=== PATIENT | male | born 1935 | race Caucasian/White ===

== ENCOUNTER 2016-10-07 13:26 | Inpatient (IN) | payer MEDICARE, BC ==
[2016-10-07] MEDS ORDERED: Sodium Chloride 0.9% 10 ML Syringe FLUSH PRN (13:57)
[2016-10-07] MEDS ORDERED: Sodium Chloride 0.9% 1,000 ML IV ONE (14:00)
[2016-10-07 15:17] LABS: CHLORIDE,CL 106 mmol/L (98-107); SODIUM,NA 143 mmol/L (136-145)
[2016-10-07] MEDS: Sodium Chloride 0.9% 1,500 ML IV SCH (17:09)
--- NOTE | 2016-10-07 18:47 | PCM.HP ---
H&P History of Present Illness - General Date of Service: 10/07/16 Admit Problem/Dx: Admission Diagnosis/Problem Admission Diagnosis/Problem Rhabdomyolysis Source of Information: Patient, Family History Limitations: Reports: Other (patient is nonverbal and can only communicate by giving thumb up/thumb down answers) - History of Present Illness Initial Comments - Free Text/Narative: Mr. Norman is an 81 yo male with PMH of mild cognitive impairment, parkinson's disease, hypertension, TIA, giant cell arteritis, polymyalgia rheumatica, hyperlipidemia, adrenal insufficiency, depression, guillan barre, GERD, and osteoporosis who presented to the ED for evaluation after a fall this morning. He was checked on at 7 am. When the family member currently staying with him checked on him again at 9 am, he was on the ground due to a fall. He was trying to get up. The fall was unwitnessed. However, the patient uses a walker for ambulation typically and when they found him, the walker was not near him. It seemed to them he must have been trying to get out of bed and get dressed without using his walker. The patient does not recall the events leading up to the fall or of the fall itself. After they got him back into bed, he was quite sleepy the remainder of the day. This is what ultimately caused the family to bring him in to the ED. He has otherwise not been ill recently that they know of. The ROS is limited by the patient's inability to verbally communicate but is negative for what questions he can answer. He has no pain anywhere. The only other concern by family is his weight loss. They report that he really does not eat much and does not seem interested in eating. Onset of Symptoms: Reports: today Duration of Symptoms: Reports: Hour(s): (6) - Related Data Allergies/Adverse Reactions: Allergies Allergy/AdvReac Type Severity Reaction Status Date / Time Bleach (Sodium Hypochlorite) Allergy Hives Verified 10/07/16 16:10 clindamycin Allergy Other Verified 10/07/16 16:10 hydrocodone Allergy Cannot Verified 10/07/16 13:41 Remember Influenza Virus Vaccines Allergy Other Verified 10/07/16 16:10 levofloxacin [From Levaquin] Allergy Cannot Verified 10/07/16 13:41 Remember lisinopril Allergy Other Verified 10/07/16 16:10 losartan [From Cozaar] Allergy Other Verified 10/07/16 16:10 morphine Allergy Other Verified 10/07/16 16:10 naproxen [From Aleve] Allergy Other Verified 10/07/16 16:10 Penicillins Allergy Cannot Verified 10/07/16 13:41 Remember detergents Allergy Hives Uncoded 10/07/16 16:10 Home Medications: Home Meds Carboxymethylcellulose Sodium [Refresh Tears] 2 drop ASDIRECTED PRN 10/07/16 [ History] Travoprost [Travatan Z 0.004% Ophth Soln] 1 drop DAILY 10/07/16 [History] predniSONE [Prednisone] 3 mg DAILY 10/07/16 [History] Past Medical History HEENT History: Reports: Glaucoma Other HEENT History: Presbyopia Cardiovascular History: Reports: High cholesterol, Hypertension Respiratory History: Reports: None Gastrointestinal History: Reports: Bowel obstruction, GERD Other Gastrointestinal History: weight loss Genitourinary History: Reports: Other (see below) Other Genitourinary History: urinary hesitancy Musculoskeletal History: Reports: Arthritis, Fibromyalgia, Osteoporosis, Other ( see below) Other Musculoskeletal History: polymyalgia rheumatica Neurological History: Reports: Parkinson's, TIA Other Neuro History: Guillain [place] syndrome Psychiatric History: Reports: Depression, Other (see below) (cognitive impairment) Endocrine/Metabolic History: Reports: Other (see below) (adrenal insufficiency) Hematologic History: Reports: None Immunologic History: Reports: None Oncologic (Cancer) History: Reports: None Dermatologic History: Reports: None - Infectious Disease History Infectious Disease History: Reports: None - Past Surgical History HEENT Surgical History: Reports: Oral surgery, Other (see below) Other HEENT Surgeries/Procedures: cyst excision of mandible GI Surgical History: Reports: Other (see below) Other GI Surgeries/Procedures: intestinal resection Musculoskeletal Surgical History: Reports: Joint replacement Other Musculoskeletal Surgeries/Procedures:: hip Social & Family History - Family History Family Medical History: Unobtainable - Tobacco Use Smoking Status *Q: Never Smoker Second Hand Smoke Exposure: No - Caffeine Use Caffeine Use: Reports: Coffee - Alcohol Use Alcohol Use History: No Days Per Week of Alcohol Use: 1 Number of Drinks Per Day: 1 Total Drinks Per Week: 1 - Recreational Drug Use Recreational Drug Use: No - Living Situation & Occupation Living situation: Reports: , alone (Patient lives alone but his family has been consistently staying with him.) H&P Review of Systems - Review of Systems: Review Of Systems: See Below (ROS is limited by patient's inability to speak) General: Reports: no symptoms HEENT: Reports: no symptoms Pulmonary: Reports: no symptoms Cardiovascular: Reports: no symptoms Gastrointestinal: Reports: No symptoms Genitourinary: Reports: no symptoms Musculoskeletal: Reports: no symptoms Skin: Reports: no symptoms Neurological: Reports: no symptoms Hematologic/Lymphatic: Reports: no symptoms Exam - Exam Exam: See Below - Vital Signs Vital Signs: Last Vital Signs Temp 36.9 C 10/07/16 16:48 Pulse 79 10/07/16 16:48 Resp 20 10/07/16 16:48 BP 124/68 10/07/16 16:48 Pulse Ox 98 10/07/16 15:41 Weight: 59.783 kg - Exam General: alert, cooperative HEENT: Conjunctiva clear, EOMI, Hearing intact, Mucosa moist & pink, Pupils equal, Pupils reactive Neck: supple, trachea midline, full range of motion, other (no midline or paraspinous muscle tenderness to palpation in the cervical spine; normal ROM without pain). No: lymphadenopathy, thyromegaly Lungs: Clear to auscultation, Normal respiratory effort Cardiovascular: regular rate, regular rhythm, normal S1, normal S2. No: systolic murmur, diastolic murmur Abdomen: normal bowel sounds, soft. No: organomegaly, peritoneal signs, tenderness Back Exam: normal inspection, full range of motion Extremities: normal inspection, normal pulses. No: edema Skin: warm, dry, intact Neurological: cranial nerves intact, normal gait. No: focal deficit - Patient Data Lab Results last 24 hrs: Laboratory Results - last 24 hr 10/07/16 Range/Units 16:15 Urine Color Dark yellow H (YELLOW) Urine Appearance Slightly cloudy H (CLEAR) Urine pH 5.5 (5.0-8.0) Ur Specific [place] >=1.030 Urine Protein 30 H (NEGATIVE) mg/dL Urine Glucose (UA) Negative (NEGATIVE) mg/dL Urine Ketones 80 H (NEGATIVE) mg/dL Urine Occult Blood Small H (NEGATIVE) Urine Nitrite Negative (NEGATIVE) Urine Bilirubin Small H (NEGATIVE) Urine Urobilinogen 0.2 (0.2) EU/dL Ur Leukocyte Esterase Negative (NEGATIVE) Urine RBC 0-5 (NOT SEEN) /HPF Urine WBC 0-5 (NOT SEEN) /HPF Ur Squamous Epith Cells Few H (NEGATIVE) /HPF Urine Bacteria Not seen (NEGATIVE) /HPF Hyaline Casts Rare H (NEGATIVE) /HPF Urine Mucus Many H (NEGATIVE) /LPF Result Diagrams: 10/07/16 14:25 10/07/16 14:25 *Q Meaningful Use (ADM) - VTE *Q VTE Criteria *Q: - Stroke *Q Stroke Criteria *Q: - AMI *Q AMI Criteria *Q: - Problem List (1) Rhabdomyolysis SNOMED Code(s): 674410977 ICD Code: M62.82 - RHABDOMYOLYSIS Status: Acute Current Visit: Yes Problem Details: - CK of >3,000 is consistent with rhabdomyolysis. He is at low risk for renal injury unless >5,000. - As patient has no history of heart failure, will do IV fluids overnight. Will run at maintenance only. - Recheck CK in am. If downtrending, can d/c IV fluids and see if he can maintain a decrease with oral fluids only. Qualifiers: Rhabdomyolysis type: non-traumatic Qualified Code(s): M62.82 - Rhabdomyolysis (2) Unwitnessed fall SNOMED Code(s): 0846687 ICD Code: R29.6 - REPEATED FALLS Status: Acute Current Visit: Yes Problem Details: - Fall at home was unwitnessed. Sounds likely to be a mechanical fall due to not using his walker. Syncope and seizure are unlikely in the absence of any post-event confusion. - Work-up in the ED for obvious contributors to the fall was negative. - Will have patient on telemetry during his admission to exclude any arrhythmias. - PT/OT evaluation for safety returning home. (3) Unintentional weight loss SNOMED Code(s): 309865317 ICD Code: R63.4 - ABNORMAL WEIGHT LOSS Status: Acute Current Visit: Yes Problem Details: - Concern of family since August. In clinic, weight loss was minimal. However , now, he has lost 10 pounds in the past month. - Labs have been unrevealing for a cause of the weight loss with normal CBC, renal function, hepatic function, TSH, and only mildly elevated CRP. - Will obtain LDH as well as repeat CBC, BMP, CRP, and ESR with am labs. - Patient would also benefit from a CT vs. u/s of the abdomen due to history of renal mass on prior CT scan. - Family is not sure whether the patient would want to treat any malignancy if found anyway so will defer the abdominal imaging to the outpatient setting. - Likely contributors from depression and/or cognitive impairment. The patient is not interested in taking medications; therefore, would not be able to treat depression anyway and he has declined medications for cognitive impairment in the past. (4) Parkinson disease SNOMED Code(s): 74075353 ICD Code: G20 - PARKINSON'S DISEASE Status: Chronic Current Visit: Yes Problem Details: - Likely contributed to his fall. - Not on medications for this as they were not helpful in the past. (5) Mild cognitive impairment SNOMED Code(s): 253701306 ICD Code: G31.84 - MILD COGNITIVE IMPAIRMENT, SO STATED Status: Chronic Current Visit: Yes Problem Details: - Also likely contributed to his fall. - Not on any medications for this either. (6) Hypertension SNOMED Code(s): 64989718 ICD Code: I10 - ESSENTIAL (PRIMARY) HYPERTENSION Status: Chronic Current Visit: Yes Problem Details: - In the past but off medications for quite some time with normal blood pressures. - May have been some orthostasis related to parkinson's disease that contributed to his fall. Qualifiers: Hypertension type: essential hypertension Qualified Code(s): I10 - Essential (primary) hypertension (7) Polymyalgia rheumatica SNOMED Code(s): 57163649 ICD Code: M35.3 - POLYMYALGIA RHEUMATICA Status: Chronic Current Visit: Yes Problem Details: - No current symptoms. (8) Hyperlipidemia SNOMED Code(s): 20398142 ICD Code: E78.5 - HYPERLIPIDEMIA, UNSPECIFIED Status: Chronic Current Visit: Yes Problem Details: - On no medications for this. (9) Adrenal insufficiency SNOMED Code(s): 069369702 ICD Code: E27.40 - UNSPECIFIED ADRENOCORTICAL INSUFFICIENCY Status: Chronic Current Visit: Yes Problem Details: - No evidence adrenal insufficiency contributed to his fall given normal vital signs and labs on admission. - Will stress dose steroids to 9 mg daily while hospitalized. (10) Depression SNOMED Code(s): 16198756 ICD Code: F32.9 - MAJOR DEPRESSIVE DISORDER, SINGLE EPISODE, UNSPECIFIED Status: Chronic Current Visit: Yes Problem Details: - Patient refuses to take medications for this. It may be contributing to appetite and weight loss issues. Qualifiers: Depression Type: major depressive disorder (11) Glaucoma SNOMED Code(s): 28727505 ICD Code: H40.9 - UNSPECIFIED GLAUCOMA Status: Chronic Current Visit: Yes Problem Details: - Continue eye drops. Qualifiers: Glaucoma type: unspecified type Laterality: bilateral Qualified Code(s): H40.9 - Unspecified glaucoma Problem List Initiated/Reviewed/Updated: Yes Orders Last 24hrs: Active Orders 24 hr Category Date Time Status Patient Status [ADT] Routine ADT 10/07/16 16:48 Active Antiembolic Devices [RC] PER UNIT ROUTINE Care 10/07/16 16:50 Active Notify Provider Vital Signs [RC] ASDIRECTED Care 10/07/16 16:48 Active Oxygen Therapy [RC] 08,20 Care 10/07/16 15:52 Active Oxygen Therapy [RC] PRN Care 10/07/16 16:48 Active Up With Assistance [RC] ASDIRECTED Care 10/07/16 16:48 Active VTE/DVT Education [RC] PER UNIT ROUTINE Care 10/07/16 16:48 Active Vital Signs [RC] Q4H Care 10/07/16 16:48 Active Regular Diet [DIET] Diet 10/07/16 Dinner Active BASIC METABOLIC PANEL,BMP [CHEM] Routine Lab 10/08/16 05:11 Ordered C-REACTIVE PROTEIN [CHEM] Routine Lab 10/08/16 05:11 Ordered CBC WITH AUTO DIFF [HEME] Routine Lab 10/08/16 05:11 Ordered LACTATE DEHYDROGENASE,LDH [CHEM] Routine Lab 10/08/16 05:11 Ordered SEDIMENTATION RATE AUTO [HEME] Routine Lab 10/08/16 05:11 Ordered Acetaminophen [Tylenol] Med 10/07/16 16:48 Active 650 mg PO Q4H PRN Patient's Own Medication [Ptom] Med 10/07/16 20:00 Active 0 each EYEBOTH BEDTIME Sodium Chloride 0.9% [Normal Saline] 1,500 ml Med 10/07/16 17:00 Active IV ASDIRECTED predniSONE Med 10/08/16 08:00 Active 9 mg PO DAILY Sequential Compression Device [OM.PC] Per Unit Routine Oth 10/07/16 16:49 Ordered Resuscitation Status Routine Resus Stat 10/07/16 16:48 Ordered Medication Orders Acetaminophen (Tylenol) 650 mg PO Q4H PRN PRN Reason: Pain (Mild 1-3)/fever Sodium Chloride (Normal Saline) 1,500 mls @ 100 mls/hr IV ASDIRECTED [facility] Last Admin: 10/07/16 17:09 Dose: 100 mls/hr Travatan Z Ptom 0 each EYEBOTH BEDTIME JOLYNN Prednisone (Prednisone) 9 mg PO DAILY JOLYNN Sodium Chloride (Saline Flush) 10 ml FLUSH ASDIRECTED PRN PRN Reason: Keep Vein Open Assessment/Plan Comment:: 81 yo male admitted for IV fluids to treat rhabdomyolysis after sustaining a fall at home this morning. Cause for fall is likely mechanical but was unwitnessed so is unclear. Maintenance IV fluids overnight; recheck CK in am. Otherwise, continue home medications. Will defer further work-up of weight loss to the outpatient setting. SCDs for VTE prophylaxis as patient is ambulatory and will likely have a short hospital stay. Patient and his sons agree with code status of DNR/DNI. Anticipate dismissal home in 48-72 hours.
[2016-10-07] MEDS ORDERED: TRAVATAN Z EYEBOTH SCH (20:00)
[2016-10-07] MEDS: Acetaminophen 325 MG Tab PO PRN (22:10)
--- NOTE | 2016-10-07 22:53 | ER ---
Date of Service: 10/07/2016 SUBJECTIVE: The patient presents to the emergency room with his family. Family states that he fell and was on the floor for an unknown amount of time this morning. The family states that he was unaccounted for approximately 2 hours. The patient has a 24-hour care provided by his family consisting primarily of his children as well as his niece. The patient and patient's family have been resistive of the patient being admitted to a long-term care facility. He does have a history of polymyalgia rheumatica and refuses to take more than three 1 mg tablets of prednisone for his vision issues secondary to the polymyalgia rheumatica. He also does have a history of Parkinson disease, but his Parkinson's medications were not effective, so he is not taking them. Currently, he is only taking his prednisone. He is also not taking anything for his hypertension. The patient is nonverbal and was not able to relate if he had any injury or physical pain. PAST MEDICAL HISTORY: 1. Parkinson disease. 2. Hypertension. 3. TIA. 4. Giant-cell arteritis with polymyalgia rheumatica. 5. Hyperlipidemia. 6. History of adrenal insufficiency. 7. Depression. 8. Guillain-[place]. 9. Cognitive impairment. 10.Marti's esophagus. 11.History of small-bowel obstruction. 12.GERD. 13.Urinary hesitancy. 14.Glaucoma. 15.Failure to thrive and unintentional weight loss. ALLERGIES: 1. Flu vaccine. 2. Morphine. 3. Lisinopril. 4. Levaquin. 5. Cozaar. 6. Clindamycin. 7. Aleve. 8. Certain detergents. 9. Bleach. REVIEW OF SYSTEMS: Unobtainable. The patient was able to relate to his family; however, that he was not experiencing any discomfort. PHYSICAL EXAMINATION: General: This is an 81-year-old male patient, who is in no acute distress. Vital Signs: Blood pressure is 125/65, pulse rate is 82, temperature is 36.9, respiratory rate 16, O2 saturations 97%. Skin: Warm, pink, and dry. HEENT: Head is normocephalic, atraumatic. Eyes, PERRLA. Extraocular movements are intact. Ears, his right tympanic membrane is obstructed with cerumen. Left tympanic membrane was partially visualized and there was no evidence of any erythema or air fluid levels. External canals are within normal limits. Mouth, oral mucosa is somewhat dry. No erythema or exudate noted in the hypopharynx. Neck: Supple without masses. There is no lymphadenopathy. Spine: No midline C-spine, thoracic, or lumbar discomfort noted on palpation. Back: No obvious skin breakdown, ecchymosis or erythema to his back or buttocks or extremities. Chest: No chest wall trauma noted. Lungs: Clear to auscultation. Heart: Regular rate and rhythm. Abdomen: Soft and nontender. There is no hepatosplenomegaly noted. There are no masses noted. He is quite thin and his abdomen is scaphoid. Pelvis is stable. Extremities: No extremity trauma noted. Neurologic: The patient is awake and his eyes are open. He was not able to communicate with me or offer me much in the way of head shaking to the affirmative or negative when questioned about his symptoms. He did have of 5/5 strength in both his upper and lower extremities. He was unable to stand, so I was unable to assess his Romberg. He was unable to submit to arm raise to assess his pronator drift. DIAGNOSTIC DATA: CT scan of the patient's brain was obtained. There was no evidence of any acute pathology. Chest x-ray was obtained. There was no evidence of any acute pathology. LABORATORY DATA: Hematology; WBC is 10.0, hemoglobin is 12.7, platelets are 297. PT is 12.1, INR is 1.1. Comprehensive metabolic panel was obtained. Sodium is 143, potassium is 3.8, chloride is 106, bicarb is 27, BUN is 20, creatinine is 0.9. GFR is greater than 60. Glucose is 88, lactic acid is 1.2, calcium is 9.1, corrected calcium is 9.42, total bilirubin is 1.0, AST is 91, ALT is 28, alkaline phosphatase is 74. CK is 3,744, CK-MB is 21.5. Troponin is 0.046. C-reactive protein elevated at 3.4, total protein is 7.1, albumin is 3.6. TSH is 1.621. Urinalysis was obtained, it did have 80 ketones, small occult blood. Negative for nitrites and did have small bilirubin. Negative leukocyte esterase. No bacteria were seen. Specific gravity was 1.030, pH was 5.5. ASSESSMENT: 1. Fall with extended period of immobility. 2. Rhabdomyolysis secondary to #1. 3. Dehydration. PLAN: The patient was given a liter of normal saline in the emergency room. He was profoundly weak and again in acute rhabdomyolysis, so decision was made to admit the patient acutely. I spoke with Dr. Halley Santiago, who will be admitting the patient. The patient is a code level 2 with no intubation, no resuscitation. MWK: 10/07/2016 16:55:44 MODL: 10/07/2016 22:45:53 /[id number]
[2016-10-08] MEDS: Sodium Chloride 0.9% 1,500 ML IV SCH ×2 (02:48→12:49)
[2016-10-08 07:20] LABS: CHLORIDE,CL 110 mmol/L (98-107); SODIUM,NA 143 mmol/L (136-145)
[2016-10-08] MEDS ORDERED: predniSONE 1 MG Tab PO SCH (08:00)
--- NOTE | 2016-10-08 11:34 | PCM.PN ---
- General Info Date of Service: 10/08/16 Subjective Update: Did well overnight. The patient has no concerns this morning. He denies any pain. He did have a temp of 38.1 last night but has had no issues this morning. - Review of Systems General: Reports: fever HEENT: Reports: no symptoms Pulmonary: Reports: no symptoms Cardiovascular: Reports: no symptoms Gastrointestinal: Reports: No symptoms Genitourinary: Reports: no symptoms Musculoskeletal: Reports: no symptoms Skin: Reports: no symptoms Neurological: Reports: no symptoms - Patient Data Vitals - most recent: Last Vital Signs Temp 36.8 C 10/08/16 06:00 Pulse 69 10/08/16 06:00 Resp 18 10/08/16 06:00 BP 102/58 L 10/08/16 06:00 Pulse Ox 97 10/08/16 06:00 Weight - most recent: 59.783 kg I&O - last 24 hours: Intake & Output 10/07/16 10/08/16 10/08/16 22:59 06:59 14:59 Intake Total 360 100 120 Balance 360 100 120 Lab Results last 24 hrs: Laboratory Results - last 24 hr 10/07/16 10/08/16 10/08/16 Range/Units 16:15 06:15 06:15 WBC 7.4 (4.0-10.0) x10^3/uL RBC 3.71 L (4.5-6.0) x10^6/uL Hgb 11.9 L (14.0-18.0) g/dL Hct 36.1 L (40.0-52.0) % MCV 97.3 H (78.0-93.0) fL MCH 32.1 H (26.0-32.0) pg MCHC 33.0 (32.0-36.0) g/dL RDW Coeff of Halima 13.5 (10.0-15.0) % Plt Count 285 (130-400) x10^3/uL Neut % (Auto) 58.9 (50.0-80.0) % Lymph % (Auto) 27.1 (25.0-50.0) % [place] % (Auto) 10.4 (2.0-11.0) % Eos % (Auto) 3.5 (0.0-4.0) % Baso % (Auto) 0.1 L (0.2-1.2) % ESR 26 H (0-16) mm/hr Sodium 143 (136-145) mmol/L Potassium 4.2 (3.5-5.1) mmol/L Chloride 110 H (98-107) mmol/L Carbon Dioxide 26 (21-32) mmol/L BUN 18 (7-18) mg/dL Creatinine 0.8 (0.70-1.30) mg/dL Est Cr Clr Drug Dosing 59.16 mL/min Estimated GFR (MDRD) > 60 Glucose 85 (74-106) mg/dL Calcium 8.6 (8.5-10.1) mg/dL Lactate Dehydrogenase 173 (85-227) U/L Creatine Kinase 2633 H* (39-308) U/L C-Reactive Protein 3.9 H (<=0.9) mg/dL Urine Color Dark yellow H (YELLOW) Urine Appearance Slightly cloudy H (CLEAR) Urine pH 5.5 (5.0-8.0) Ur Specific [place] >=1.030 Urine Protein 30 H (NEGATIVE) mg/dL Urine Glucose (UA) Negative (NEGATIVE) mg/dL Urine Ketones 80 H (NEGATIVE) mg/dL Urine Occult Blood Small H (NEGATIVE) Urine Nitrite Negative (NEGATIVE) Urine Bilirubin Small H (NEGATIVE) Urine Urobilinogen 0.2 (0.2) EU/dL Ur Leukocyte Esterase Negative (NEGATIVE) Urine RBC 0-5 (NOT SEEN) /HPF Urine WBC 0-5 (NOT SEEN) /HPF Ur Squamous Epith Cells Few H (NEGATIVE) /HPF Urine Bacteria Not seen (NEGATIVE) /HPF Hyaline Casts Rare H (NEGATIVE) /HPF Urine Mucus Many H (NEGATIVE) /LPF Med Orders - Current: Current Medications Acetaminophen (Tylenol) 650 mg PO Q4H PRN PRN Reason: Pain (Mild 1-3)/fever Last Admin: 10/07/16 22:10 Dose: 650 mg Diatrizoate Meglum/Diatrizoate Sod (Gastrografin 37%) 10 ml PO Q30M [facility] Stop: 10/08/16 12:31 Sodium Chloride (Normal Saline) 1,500 mls @ 100 mls/hr IV ASDIRECTED [facility] Last Admin: 10/08/16 02:48 Dose: 100 mls/hr Travatan Z Ptom 0 each EYEBOTH BEDTIME [facility] Last Admin: 10/07/16 20:50 Dose: Not Given Prednisone (Prednisone) 9 mg PO DAILY [facility] Last Admin: 10/08/16 08:59 Dose: 9 mg Sodium Chloride (Saline Flush) 10 ml FLUSH ASDIRECTED PRN PRN Reason: Keep Vein Open Discontinued Medications Sodium Chloride (Normal Saline) 1,000 mls @ 1,000 mls/hr IV .BOLUS ONE Stop: 10/07/16 14:59 Last Admin: 10/07/16 14:33 Dose: 1,000 mls/hr - Exam General: alert, cooperative, no acute distress HEENT: Pupils equal, Pupils reactive, Mucous membr. moist/pink Neck: supple, trachea midline, no thyromegaly. No: lymphadenopathy Lungs: Clear to auscultation, Normal respiratory effort Cardiovascular: regular rate, regular rhythm, no murmurs Abdomen: bowel sounds present, soft, no tenderness, no distension Extremities: no edema, normal pulses, no tenderness/swelling Skin: warm, dry, intact Neurological: normal gait, strength equal bilateral (5/5) - Problem List & Annotations (1) Rhabdomyolysis SNOMED Code(s): 659018646 Code(s): M62.82 - RHABDOMYOLYSIS Status: Acute Current Visit: Yes Qualifiers: Rhabdomyolysis type: non-traumatic Qualified Code(s): M62.82 - Rhabdomyolysis Annotation/Comment:: - CK of >3,000 is consistent with rhabdomyolysis. Down by 30% this morning, which is not quite as much of a decrease as expected. That being said, the peak is usually 24 hours, which would be around now so it is likely more of a significant decrease than measured. - Patient has done well with fluid load thus far; will continue IV fluids throughout the day today and stop this afternoon. - Recheck CK in am. If downtrending without IV fluids overnight, patient can likely be dismissed tomorrow. If uptrending, will need to restart IV fluids and follow another day. - History of being on the ground for only 2 hours would not really be consistent with causing this level of CK elevation. The patient has no muscle tenderness or weakness to suggest polymyositis or dermatomyositis. In the setting of his unintentional weight loss, chronic infection vs. malignancy are considered but this is made less likely with his normal LDH today. - Will obtain CXR and CT abdomen/pelvis today as noted below. If these are unremarkable, will continue to treat as uncomplicated rhabdo and do further testing as needed. (2) Unwitnessed fall SNOMED Code(s): 3265730 Code(s): R29.6 - REPEATED FALLS Status: Acute Current Visit: Yes Annotation/Comment:: - Fall at home was unwitnessed. Sounds likely to be a mechanical fall due to not using his walker. Syncope and seizure are unlikely in the absence of any post-event confusion. - Work-up in the ED for obvious contributors to the fall was negative. - Will have patient on telemetry during his admission to exclude any arrhythmias. - PT evaluation for safety returning home. No OT evaluation as patient is nonverbal. (3) Unintentional weight loss SNOMED Code(s): 172882069 Code(s): R63.4 - ABNORMAL WEIGHT LOSS Status: Acute Current Visit: Yes Annotation/Comment:: - Concern of family since August. In clinic, weight loss was minimal. However , now, he has lost 10 pounds in the past month. - Labs have been unrevealing for a cause of the weight loss with normal CBC, renal function, hepatic function, TSH, and only mildly elevated CRP. LDH normal , CRP uptrending, and ESR mildly up as well. - Due to the various laboratory abnormalities and acceleration in weight loss recently, imaging is indicated in the form of a chest x-ray and a CT abdomen/ pelvis. Reviewed with radiology, who agree that IV contrast would not be a good idea in this patient who is admitted for rhabdomyolysis. Study should be adequate with PO contrast only. These tests were ordered to be completed today. - Likely contributors from depression and/or cognitive impairment. The patient is not interested in taking medications; therefore, would not be able to treat depression anyway and he has declined medications for cognitive impairment in the past. (4) Parkinson disease SNOMED Code(s): 27610719 Code(s): G20 - PARKINSON'S DISEASE Status: Chronic Current Visit: Yes Annotation/Comment:: - Likely contributed to his fall. - Not on medications for this as they were not helpful in the past. (5) Mild cognitive impairment SNOMED Code(s): 947039668 Code(s): G31.84 - MILD COGNITIVE IMPAIRMENT, SO STATED Status: Chronic Current Visit: Yes Annotation/Comment:: - Also likely contributed to his fall. - Not on any medications for this either. (6) Hypertension SNOMED Code(s): 90953628 Code(s): I10 - ESSENTIAL (PRIMARY) HYPERTENSION Status: Chronic Current Visit: Yes Qualifiers: Hypertension type: essential hypertension Qualified Code(s): I10 - Essential (primary) hypertension Annotation/Comment:: - In the past but off medications for quite some time with normal blood pressures. - May have been some orthostasis related to parkinson's disease that contributed to his fall. (7) Polymyalgia rheumatica SNOMED Code(s): 94712577 Code(s): M35.3 - POLYMYALGIA RHEUMATICA Status: Chronic Current Visit: Yes Annotation/Comment:: - No current symptoms. (8) Hyperlipidemia SNOMED Code(s): 41791221 Code(s): E78.5 - HYPERLIPIDEMIA, UNSPECIFIED Status: Chronic Current Visit: Yes Annotation/Comment:: - On no medications for this. (9) Adrenal insufficiency SNOMED Code(s): 101637778 Code(s): E27.40 - UNSPECIFIED ADRENOCORTICAL INSUFFICIENCY Status: Chronic Current Visit: Yes Annotation/Comment:: - No evidence adrenal insufficiency contributed to his fall given normal vital signs and labs on admission. - For ease of administration, will stress dose steroids at 7.5 mg daily while hospitalized. (10) Depression SNOMED Code(s): 26369041 Code(s): F32.9 - MAJOR DEPRESSIVE DISORDER, SINGLE EPISODE, UNSPECIFIED Status: Chronic Current Visit: Yes Qualifiers: Depression Type: major depressive disorder Annotation/Comment:: - Patient refuses to take medications for this. It may be contributing to appetite and weight loss issues. (11) Glaucoma SNOMED Code(s): 13383494 Code(s): H40.9 - UNSPECIFIED GLAUCOMA Status: Chronic Current Visit: Yes Qualifiers: Glaucoma type: unspecified type Laterality: bilateral Qualified Code(s): H40.9 - Unspecified glaucoma Annotation/Comment:: - Continue eye drops. - Problem List Review Problem List Initiated/Reviewed/Updated: Yes - My Orders Last 24 Hours: My Active Orders 10/07/16 16:48 Patient Status [ADT] Routine Notify Provider Vital Signs [RC] ASDIRECTED Oxygen Therapy [RC] PRN Up With Assistance [RC] ASDIRECTED VTE/DVT Education [RC] PER UNIT ROUTINE Vital Signs [RC] 06,10,14,18,22,02 Acetaminophen [Tylenol] 650 mg PO Q4H PRN Resuscitation Status Routine 10/07/16 16:49 Sequential Compression Device [OM.PC] Per Unit Routine 10/07/16 16:50 Antiembolic Devices [RC] PER UNIT ROUTINE 10/07/16 17:00 Sodium Chloride 0.9% [Normal Saline] 1,500 ml IV ASDIRECTED 10/07/16 19:17 Telemetry Monitoring [Cardiac Monitoring] [RC] 06,10,14,18,22,02 10/07/16 20:00 Patient's Own Medication [Ptom] 0 each EYEBOTH BEDTIME 10/07/16 Dinner Regular Diet [DIET] 10/08/16 08:00 predniSONE 9 mg PO DAILY 10/08/16 11:12 Abdomen Pelvis wo Cont [CT] Timed 10/08/16 11:13 Chest 2V [CR] Timed 10/08/16 11:30 Diatrizoate Isis/Diatrizoate Na [Gastrografin 37%] 10 ml PO Q30M - Assessment Assessment:: 81 yo male admitted with elevated CK felt to be rhabdomyolysis secondary to being found down after a fall at home. He has no complaints. - Plan Plan:: Maintenance IV fluids today; d/c this afternoon. Otherwise, continue home medications. Will do CT abdomen/pelvis and chest x-ray today. Will do heparin TID for VTE prophylaxis since patient will stay again today. No lovenox as he is at risk for BENNETT in the setting of rhabdomyolysis. Patient and his sons agree with code status of DNR/DNI. Anticipate dismissal home tomorrow.
[2016-10-08] MEDS: Diatrizoate Meglumine/Diatrizoate Sodium 37% 30 ML Bottle PO SCH ×3 (11:35→12:50)
[2016-10-08] MEDS ORDERED: Latanoprost 0.005% Ophth Soln 2.5 ML Bottle EYEBOTH SCH (12:06)
[2016-10-08] MEDS: Heparin Sodium 5,000 Units/ML Vial SUBCUT SCH ×2 (15:49→21:00)
[2016-10-08] MEDS ORDERED: TRAVATAN Z EYEBOTH SCH (16:30)
[2016-10-09] MEDS: Heparin Sodium 5,000 Units/ML Vial SUBCUT SCH (05:05)
[2016-10-09] MEDS ORDERED: predniSONE 5 MG Tab PO SCH (08:00)
[2016-10-09 08:45] LABS: CHLORIDE,CL 108 mmol/L (98-107); SODIUM,NA 142 mmol/L (136-145)
[2016-10-09] MEDS: Acetaminophen 325 MG Tab PO PRN (09:05)
[2016-10-09 09:26] VITALS: BP 132/71
--- NOTE | 2016-10-10 01:38 | DISCH ---
FINAL DIAGNOSES: 1. Rhabdomyolysis, nontraumatic-felt to be secondary to sustaining a fall at home and lying on the ground for 1-2 hours afterwards before he was found. 2. Unintentional weight loss. BRIEF HISTORY: An 81-year-old male with past medical history of mild cognitive impairment and Parkinson disease, was found to have a fall at home. He was found about 1 to 2 hours after the fall had been sustained. He was brought into the emergency room for assessment and found to have an elevated, felt to be rhabdomyolysis and was subsequently admitted. The patient communicates with gestures only by raising his thumb up or down. Laboratory on admission, white count 10.0, hemoglobin 12.7, INR 1.1, creatinine of 0.9. Electrolytes were normal. Lactic acid was negative at 1.2. Liver functions were normal. CK was 3,744 at admission. C-reactive protein at 3.4. Urinalysis consistent with dehydration. Following treatment for his elevated CK, his CK today is 1,386, trending downward. His potassium was 3.3. HOSPITAL COURSE: The patient was admitted to acute care. Given IV fluids, placed on heparin for DVT prophylaxis. Kept on his oral prednisone to a higher dose than normal. The patient's condition improved. His CK trended downwards. He felt better and was felt stable for discharge on 10/09/2016. He had been seen by Physical Therapy, they felt he was back to his baseline needs and they did not feel he needed any swing bed services. He has 24-hour care at home. DISCHARGE MEDICATIONS: Travatan eyedrops for glaucoma. His prednisone, give him 5 mg tomorrow and then go back to 3 mg daily after that. FOLLOWUP: Follow up with his primary care provider this week for monitoring of his condition and call or return if any problems or concerns. Duration of discharge day evaluation summary was greater than 30 minutes. FM: 10/09/2016 12:07:16 MODL: 10/10/2016 01:15:31 /[id number]
== END 2016-10-09 12:38 | disposition home or self-care (01) | DRG 558 ==
LOC: VM.ED 13:26 → VM.MS 15:31
PROVIDERS: ADMIT Family Medicine; ATTEND Family Medicine
DX: M62.82 Rhabdomyolysis (principal); E86.0 Dehydration; E27.40 Unspecified adrenocortical insufficiency; R55 Syncope and collapse; W19.XXXA Unspecified fall, initial encounter; G20 Parkinson's disease; M35.3 Polymyalgia rheumatica; I10 Essential (primary) hypertension; E78.5 Hyperlipidemia, unspecified; M31.5 Giant cell arteritis with polymyalgia rheumatica; G61.0 Guillain-Barre syndrome; M81.0 Age-related osteoporosis without current pathological fracture; R63.4 Abnormal weight loss; R29.6 Repeated falls; H40.9 Unspecified glaucoma; F32.9 Major depressive disorder, single episode, unspecified; K21.9 Gastro-esophageal reflux disease without esophagitis; Z86.73 Personal history of transient ischemic attack (TIA), and cerebral infarction without residual deficits
CPT/HCPCS: 36415; 70450; 80053; 82550; 82553; 83605; 84443; 84484; 85025; 85610; 86140; 87040 ×2; 93005; 96360; 99285 ×2; J7030; 71020; 74176; 80048; 81001; 83615; 85652; 97161-GP; A9270-GY; J1644

== ENCOUNTER 2016-12-12 17:03 | Emergency (ER) | payer MEDICARE, BC ==
[2016-12-12] MEDS ORDERED: Sodium Chloride 0.9% 10 ML Syringe FLUSH PRN (17:23)
[2016-12-12] MEDS ORDERED: Sodium Chloride 0.9% 1,000 ML IV SCH (17:30)
[2016-12-12 17:31] VITALS: BP 125/66
[2016-12-12 18:37] LABS: CHLORIDE,CL 106 mmol/L (98-107); SODIUM,NA 140 mmol/L (136-145)
--- NOTE | 2016-12-12 18:39 | EDM.PDOC ---
ED HPI GENERAL MEDICAL PROBLEM - General Chief Complaint: General Stated Complaint: DISORIENTED Time Seen by Provider: 12/12/16 17:04 Source of Information: Reports: Patient, Family, RN, RN notes reviewed History Limitations: Reports: No limitations - History of Present Illness INITIAL COMMENTS - FREE TEXT/NARRATIVE: Patient is brought to the ED at [facility] via POV with a chief complain of increase lethargy, and disorientation that started earlier today. In review of the patient EPIC chart and PCP notes, this does not seem to be anything new. The patients daughter is the caregiver. She has claimed the patient has had weight loss, but no documentation of this. His BMI has actually been improving. Onset: today Onset Date: 12/12/16 Duration: Waxing/waning - Related Data Allergies Allergy/AdvReac Type Severity Reaction Status Date / Time Bleach (Sodium Hypochlorite) Allergy Hives Verified 12/12/16 19:18 clindamycin Allergy Other Verified 12/12/16 19:18 hydrocodone Allergy Cannot Verified 12/12/16 19:18 Remember Influenza Virus Vaccines Allergy Other Verified 12/12/16 19:18 levofloxacin [From Levaquin] Allergy Nausea and Verified 12/12/16 19:18 Vomiting lisinopril Allergy Other Verified 12/12/16 19:18 losartan [From Cozaar] Allergy Other Verified 12/12/16 19:18 morphine Allergy Other Verified 12/12/16 19:18 naproxen [From Aleve] Allergy Other Verified 12/12/16 19:18 Penicillins Allergy Rash Verified 12/12/16 19:18 detergents Allergy Hives Uncoded 10/07/16 16:10 Home Meds: Home Meds Carboxymethylcellulose Sodium [Refresh Tears] 2 drop EYEBOTH ASDIRECTED PRN 02/16 [History] Travoprost [Travatan Z 0.004% Ophth Soln] 1 drop EYEBOTH DAILY 10/07/16 [History ] predniSONE [Prednisone] 3 mg PO DAILY #0 10/09/16 [Rx] Tamsulosin HCl [Flomax] 0.4 mg PO DAILY 12/12/16 [History] Past Medical History HEENT History: Reports: Glaucoma Other HEENT History: Presbyopia Cardiovascular History: Reports: High cholesterol, Hypertension Respiratory History: Reports: None Gastrointestinal History: Reports: Bowel obstruction, GERD Other Gastrointestinal History: weight loss Genitourinary History: Reports: Other (see below) Other Genitourinary History: urinary hesitancy Musculoskeletal History: Reports: Arthritis, Fibromyalgia, Osteoporosis, Other ( see below) Other Musculoskeletal History: polymyalgia rheumatica Neurological History: Reports: Parkinson's, TIA 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 Psychiatric History: Reports: Depression Endocrine/Metabolic History: Reports: Other (see below) (adrenal insufficiency) Hematologic History: Reports: None Immunologic History: Reports: None Oncologic (Cancer) History: Reports: None Dermatologic History: Reports: None - Infectious Disease History Infectious Disease History: Reports: None - Past Surgical History HEENT Surgical History: Reports: Oral surgery, Other (see below) Other HEENT Surgeries/Procedures: cyst excision of mandible GI Surgical History: Reports: Other (see below) Other GI Surgeries/Procedures: intestinal resection Musculoskeletal Surgical History: Reports: Joint replacement Other Musculoskeletal Surgeries/Procedures:: hip Social & Family History - Family History Family Medical History: Unobtainable - Tobacco Use Smoking Status *Q: Unknown Ever Smoked Second Hand Smoke Exposure: No - Caffeine Use Caffeine Use: Reports: Coffee - Alcohol Use Days Per Week of Alcohol Use: 1 Number of Drinks Per Day: 1 Total Drinks Per Week: 1 - Recreational Drug Use Recreational Drug Use: No - Living Situation & Occupation Living situation: Reports: , alone (Patient lives alone but his family has been consistently staying with him.) ED ROS GENERAL - Review of Systems Review Of Systems: See Below Constitutional: Reports: weakness, decreased appetite. Denies: fever, chills HEENT: Reports: No symptoms Respiratory: Denies: shortness of breath, cough Cardiovascular: Denies: Chest pain, Palpitations GI/Abdominal: Denies: Abdominal pain, Diarrhea, Nausea, Vomiting Skin: Reports: no symptoms Neurological: Reports: no symptoms. Denies: headache, numbness, paresthesia, tingling ED EXAM, GENERAL - Physical Exam Exam: See Below Exam Limited By: No limitations General Appearance: alert, no apparent distress, thin, cachetic Eye Exam: bilateral eye: EOMI, normal inspection, PERRL Ears: normal external exam, normal canal, hearing grossly normal, normal TMs Ear Exam: bilateral ear: TM normal Nose: normal inspection, normal mucosa, no blood Throat/Mouth: Normal inspection, Normal oropharynx, No airway compromise Head: atraumatic, normocephalic Neck: supple Respiratory/Chest: no respiratory distress, lungs clear, normal breath sounds Cardiovascular: normal peripheral pulses, regular rate, rhythm, no edema Peripheral Pulses: 2+: radial (L), radial (R) GI/Abdominal: normal bowel sounds, soft, non tender, abnormal bowel sounds: ( hyperactive) Extremities: no pedal edema Neurological: alert, other (Patient does not speak according to daughter; makes needs known by "thumbs up thumbs down.") Skin Exam: Warm, Dry, Intact, Normal color, No rash EKG INTERPRETATION EKG Date: 12/12/16 Time: 17:40 Rhythm: NSR Rate (beats/min): 73 [place]: normal P-wave: present QRS: RBBB ST-T: normal QT: normal NH/PQ Interval: 0.18 Comparison: no change EKG Interpretation Comments: 1. NSR 2. Incomplete RBBB 3. Possible RVH Course - Vital Signs Last Recorded V/S: Last Vital Signs Temp 36.8 C 12/12/16 17:04 Pulse 70 12/12/16 17:04 Resp 18 12/12/16 17:04 BP 125/66 12/12/16 17:04 Pulse Ox 98 12/12/16 17:04 - Orders/Labs/Meds Orders: Active Orders 24 hr Category Date Time Status EKG 12 Lead [EKG Documentation Completion] [RC] STAT Care 12/12/16 17:23 Active Head wo Cont [CT] Stat Exams 12/12/16 17:24 Taken Sodium Chloride 0.9% [Normal Saline] 1,000 ml Med 12/12/16 17:30 Active IV ASDIRECTED Sodium Chloride 0.9% [Saline Flush] Med 12/12/16 17:23 Active 10 ml FLUSH ASDIRECTED PRN Peripheral IV Insertion Adult [OM.PC] Routine Oth 12/12/16 17:23 Ordered Medication Orders Sodium Chloride (Normal Saline) 1,000 mls @ 999 mls/hr IV ASDIRECTED JOLYNN Last Admin: 12/12/16 17:49 Dose: 999 mls/hr Sodium Chloride (Saline Flush) 10 ml FLUSH ASDIRECTED PRN PRN Reason: Keep Vein Open Labs: Laboratory Tests 12/12/16 12/12/16 12/12/16 Range/Units 17:46 17:46 17:46 WBC 7.0 (4.0-10.0) x10^3/uL RBC 3.89 L (4.5-6.0) x10^6/uL Hgb 12.4 L (14.0-18.0) g/dL Hct 37.6 L (40.0-52.0) % MCV 96.7 H (78.0-93.0) fL MCH 31.9 (26.0-32.0) pg MCHC 33.0 (32.0-36.0) g/dL RDW Coeff of Halima 13.4 (10.0-15.0) % Plt Count 276 (130-400) x10^3/uL Neut % (Auto) 75.2 (50.0-80.0) % Lymph % (Auto) 14.3 L (25.0-50.0) % Collin % (Auto) 9.4 (2.0-11.0) % Eos % (Auto) 1.0 (0.0-4.0) % Baso % (Auto) 0.1 L (0.2-1.2) % Sodium 140 (136-145) mmol/L Potassium 3.8 (3.5-5.1) mmol/L Chloride 106 (98-107) mmol/L Carbon Dioxide 29 (21-32) mmol/L BUN 16 (7-18) mg/dL Creatinine 0.8 (0.70-1.30) mg/dL Est Cr Clr Drug Dosing TNP Estimated GFR (MDRD) > 60 Glucose 122 H (74-106) mg/dL Lactic Acid 1.4 (0.4-2.0) mmol/L Calcium 8.9 (8.5-10.1) mg/dL Corrected Calcium 9.46 (8.5-10.1) mg/dL Total Bilirubin 0.5 (0.2-1.0) mg/dL AST 17 (15-37) U/L ALT 18 (16-63) U/L Alkaline Phosphatase 81 (46-116) U/L Creatine Kinase 171 (39-308) U/L Creatine Kinase Index 0.6 (0.0-4.0) % CK-MB (CK-2) 1.1 (0.0-3.6) ng/mL Troponin I < 0.017 (<=0.056) ng/mL C-Reactive Protein 2.1 H (<=0.9) mg/dL B-Natriuretic Peptide 78 (<=450) pg/mL Total Protein 6.7 (6.4-8.2) g/dL Albumin 3.3 L (3.4-5.0) g/dL Globulin 3.4 Albumin/Globulin Ratio 0.97 Urine Color (YELLOW) Urine Appearance (CLEAR) Urine pH (5.0-8.0) Ur Specific [place] Urine Protein (NEGATIVE) mg/dL Urine Glucose (UA) (NEGATIVE) mg/dL Urine Ketones (NEGATIVE) mg/dL Urine Occult Blood (NEGATIVE) Urine Nitrite (NEGATIVE) Urine Bilirubin (NEGATIVE) Urine Urobilinogen (0.2) EU/dL Ur Leukocyte Esterase (NEGATIVE) Urine RBC (NOT SEEN) /HPF Urine WBC (NOT SEEN) /HPF Ur Squamous Epith Cells (NEGATIVE) /HPF Urine Bacteria (NEGATIVE) /HPF Urine Mucus (NEGATIVE) /LPF 12/12/16 Range/Units 18:28 WBC (4.0-10.0) x10^3/uL RBC (4.5-6.0) x10^6/uL Hgb (14.0-18.0) g/dL Hct (40.0-52.0) % MCV (78.0-93.0) fL MCH (26.0-32.0) pg MCHC (32.0-36.0) g/dL RDW Coeff of Halima (10.0-15.0) % Plt Count (130-400) x10^3/uL Neut % (Auto) (50.0-80.0) % Lymph % (Auto) (25.0-50.0) % Collin % (Auto) (2.0-11.0) % Eos % (Auto) (0.0-4.0) % Baso % (Auto) (0.2-1.2) % Sodium (136-145) mmol/L Potassium (3.5-5.1) mmol/L Chloride (98-107) mmol/L Carbon Dioxide (21-32) mmol/L BUN (7-18) mg/dL Creatinine (0.70-1.30) mg/dL Est Cr Clr Drug Dosing Estimated GFR (MDRD) Glucose (74-106) mg/dL Lactic Acid (0.4-2.0) mmol/L Calcium (8.5-10.1) mg/dL Corrected Calcium (8.5-10.1) mg/dL Total Bilirubin (0.2-1.0) mg/dL AST (15-37) U/L ALT (16-63) U/L Alkaline Phosphatase (46-116) U/L Creatine Kinase (39-308) U/L Creatine Kinase Index (0.0-4.0) % CK-MB (CK-2) (0.0-3.6) ng/mL Troponin I (<=0.056) ng/mL C-Reactive Protein (<=0.9) mg/dL B-Natriuretic Peptide (<=450) pg/mL Total Protein (6.4-8.2) g/dL Albumin (3.4-5.0) g/dL Globulin Albumin/Globulin Ratio Urine Color Dark yellow H (YELLOW) Urine Appearance Slightly cloudy H (CLEAR) Urine pH 5.5 (5.0-8.0) Ur Specific [place] 1.025 Urine Protein Negative (NEGATIVE) mg/dL Urine Glucose (UA) Negative (NEGATIVE) mg/dL Urine Ketones Negative (NEGATIVE) mg/dL Urine Occult Blood Negative (NEGATIVE) Urine Nitrite Negative (NEGATIVE) Urine Bilirubin Negative (NEGATIVE) Urine Urobilinogen 0.2 (0.2) EU/dL Ur Leukocyte Esterase Negative (NEGATIVE) Urine RBC 0-5 (NOT SEEN) /HPF Urine WBC 0-5 (NOT SEEN) /HPF Ur Squamous Epith Cells Not seen (NEGATIVE) /HPF Urine Bacteria Few H (NEGATIVE) /HPF Urine Mucus Few H (NEGATIVE) /LPF Meds: Medications Generic Name Dose Route Start Last Admin Trade Name Freq PRN Reason Stop Dose Admin Sodium Chloride 1,000 mls @ 999 mls/hr 12/12/16 17:30 12/12/16 17:49 Normal Saline IV 999 mls/hr ASDIRECTED JOLYNN Administration Sodium Chloride 10 ml 12/12/16 17:23 Saline Flush FLUSH ASDIRECTED PRN Keep Vein Open - Radiology Interpretation CT Results Date: 12/12/16 CT Results Time: 18:27 Departure - Departure Time of Disposition: 19:47 Disposition: Home, Self-Care 01 Condition: good Clinical Impression: Lethargy, Walker as ambulation aid Instructions: Fatigue Referrals: Halley Santiago MD [Primary Care Provider] - Forms: ED Department Discharge Additional Instructions: 1. Keep appointment with Dr. Santiago tomorrow ED Communication - ED Communication Date/Time Date: 12/12/16 Time Called: 18:27 - Discussed Case With (1) Discussed Case With (1): Radiologist Person/s Notified (1): Niko Emmanuel - Conversation Summary Radiology Reading Discussed with Radiologist: Yes Summary Comment: No acute changes on CT of Head; frontal atrophy is chronic - Problem List Review Problem List Initiated/Reviewed/Updated: Yes - My Orders Last 24 Hours: My Active Orders 12/12/16 17:23 EKG 12 Lead [EKG Documentation Completion] [RC] STAT Sodium Chloride 0.9% [Saline Flush] 10 ml FLUSH ASDIRECTED PRN Peripheral IV Insertion Adult [OM.PC] Routine 12/12/16 17:24 Head wo Cont [CT] Stat 12/12/16 17:30 Sodium Chloride 0.9% [Normal Saline] 1,000 ml IV ASDIRECTED - Assessment/Plan Last 24 Hours: My Active Orders 12/12/16 17:23 EKG 12 Lead [EKG Documentation Completion] [RC] STAT Sodium Chloride 0.9% [Saline Flush] 10 ml FLUSH ASDIRECTED PRN Peripheral IV Insertion Adult [OM.PC] Routine 12/12/16 17:24 Head wo Cont [CT] Stat 12/12/16 17:30 Sodium Chloride 0.9% [Normal Saline] 1,000 ml IV ASDIRECTED Plan: Case discussed with Dr. Aaron; no admission to hospital advised. Patient will be discharge home
== END 2016-12-12 20:05 | disposition home or self-care (01) ==
LOC: VM.ED 17:03
DX: R53.83 Other fatigue (principal); E78.00 Pure hypercholesterolemia, unspecified; I10 Essential (primary) hypertension; K21.9 Gastro-esophageal reflux disease without esophagitis; M19.90 Unspecified osteoarthritis, unspecified site; F32.9 Major depressive disorder, single episode, unspecified; G61.0 Guillain-Barre syndrome; G20 Parkinson's disease; Z88.1 Allergy status to other antibiotic agents; Z88.5 Allergy status to narcotic agent; Z88.7 Allergy status to serum and vaccine; Z88.0 Allergy status to penicillin; Z91.09 Other allergy status, other than to drugs and biological substances
CPT/HCPCS: 70450; 80053; 81001; 82550; 82553; 83605; 83880; 84484; 85025; 86140; 93005; 96365; 99284; J7030; 99285-GF

== ENCOUNTER 2016-12-13 19:38 | Emergency (ER) | payer MEDICARE, BC ==
--- NOTE | 2016-12-13 20:16 | EDM.PDOC ---
ED HPI GI/ABDOMINAL - General Chief Complaint: Gastrointestinal Problem Stated Complaint: Nausea/vomiting Time Seen by Provider: 12/13/16 19:51 Source of Information: Reports: Patient, Family History Limitations: Reports: No limitations - History of Present Illness INITIAL COMMENTS - FREE TEXT/NARRATIVE: Family states that patient was c/o right lower quadrant abdominal pain this evening and then had one bout of nausea and vomiting. He has not had a fever and does not complain of SOB, chest pain, or AMS at this time. The patient was seen in this ED yesterday for AMS. He had a head CT and complete blood and UA work up without significant findings. The patient's family was unhappy with these findings and took the patient to [facility] ED for further assessment for abdominal pain. The patient had a full blood work up and abdominal CT without significant findings as was discharged home from the ED. Symptom Onset Date: 12/13/16 Symptom Onset Time: 18:30 Timing/Duration: Reports: Day(s): (1), Intermittent Location: RLQ Quality: Reports: ache, stabbing Severity: mild Improves with: Reports: lying down Worsens with: Reports: defecating, vomiting Associated Symptoms: Reports: denies other symptoms - Related Data Allergies/ADRs: Allergies Allergy/AdvReac Type Severity Reaction Status Date / Time Bleach (Sodium Hypochlorite) Allergy Hives Verified 12/13/16 20:22 clindamycin Allergy Other Verified 12/13/16 20:22 hydrocodone Allergy Cannot Verified 12/13/16 20:22 Remember Influenza Virus Vaccines Allergy Other Verified 12/13/16 20:22 levofloxacin [From Levaquin] Allergy Nausea and Verified 12/13/16 20:22 Vomiting lisinopril Allergy Other Verified 12/13/16 20:22 losartan [From Cozaar] Allergy Other Verified 12/13/16 20:22 morphine Allergy Other Verified 12/13/16 20:22 naproxen [From Aleve] Allergy Other Verified 12/13/16 20:22 Penicillins Allergy Rash Verified 12/13/16 20:22 detergents Allergy Hives Uncoded 12/13/16 20:22 Home Meds: Home Meds Carboxymethylcellulose Sodium [Refresh Tears] 2 drop EYEBOTH ASDIRECTED PRN 02/16 [History] Travoprost [Travatan Z 0.004% Ophth Soln] 1 drop EYEBOTH DAILY 10/07/16 [History ] predniSONE [Prednisone] 3 mg PO DAILY #0 10/09/16 [Rx] Tamsulosin HCl [Flomax] 0.4 mg PO DAILY 12/12/16 [History] Past Medical History HEENT History: Reports: Glaucoma Other HEENT History: Presbyopia Cardiovascular History: Reports: High cholesterol, Hypertension Respiratory History: Reports: None Gastrointestinal History: Reports: Bowel obstruction, GERD Other Gastrointestinal History: weight loss Genitourinary History: Reports: Other (see below) Other Genitourinary History: urinary hesitancy Musculoskeletal History: Reports: Arthritis, Fibromyalgia, Osteoporosis, Other ( see below) Other Musculoskeletal History: polymyalgia rheumatica Neurological History: Reports: Parkinson's, TIA 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 Psychiatric History: Reports: Depression Endocrine/Metabolic History: Reports: Other (see below) (adrenal insufficiency) Hematologic History: Reports: None Immunologic History: Reports: None Oncologic (Cancer) History: Reports: None Dermatologic History: Reports: None - Infectious Disease History Infectious Disease History: Reports: None - Past Surgical History HEENT Surgical History: Reports: Oral surgery, Other (see below) Other HEENT Surgeries/Procedures: cyst excision of mandible GI Surgical History: Reports: Other (see below) Other GI Surgeries/Procedures: intestinal resection Musculoskeletal Surgical History: Reports: Joint replacement Other Musculoskeletal Surgeries/Procedures:: hip Social & Family History - Family History Family Medical History: Unobtainable - Tobacco Use Smoking Status *Q: Unknown Ever Smoked Second Hand Smoke Exposure: No - Caffeine Use Caffeine Use: Reports: Coffee - Alcohol Use Days Per Week of Alcohol Use: 1 Number of Drinks Per Day: 1 Total Drinks Per Week: 1 - Recreational Drug Use Recreational Drug Use: No - Living Situation & Occupation Living situation: Reports: , alone (Patient lives alone but his family has been consistently staying with him.) ED ROS GENERAL - Review of Systems Review Of Systems: ROS reveals no pertinent complaints other than HPI. Constitutional: Reports: no symptoms HEENT: Reports: No symptoms Respiratory: Reports: no symptoms Cardiovascular: Reports: No symptoms Endocrine: Reports: no symptoms GI/Abdominal: Reports: No symptoms : Reports: no symptoms Musculoskeletal: Reports: no symptoms Skin: Reports: no symptoms Neurological: Reports: no symptoms Psychiatric: Reports: No symptoms Hematologic/Lymphatic: Reports: no symptoms Immunologic: Reports: no symptoms ED EXAM, GI/ABD - Physical Exam Exam: See Below Exam Limited By: Language barrier (patient is non-verbal but responds with hand ques) General Appearance: alert, WD/WN, no apparent distress Head: atraumatic, normocephalic Neck: normal inspection, supple, non-tender, full range of motion Respiratory/Chest: no respiratory distress, lungs clear, normal breath sounds, no accessory muscle use, chest non-tender Cardiovascular: normal peripheral pulses, regular rate, rhythm, no edema, no gallop, no JVD, no murmur, no rub GI/Abdominal: normal bowel sounds, soft, non tender, no organomegaly, no distention, no abnormal bruit, no mass Extremities: normal inspection, no pedal edema, normal capillary refill Neurological: alert, oriented Psychiatric: normal affect, normal mood Skin Exam: Warm, Dry, Intact, Normal color, No rash Lymphatic: no adenopathy Departure - Departure Time of Disposition: 20:50 Disposition: Home, Self-Care 01 Condition: good Clinical Impression: Hernia of anterior abdominal wall Vomiting Qualifiers: Vomiting type: bilious vomiting Nausea presence: with nausea Qualified Code(s) : R11.14 - Bilious vomiting Abdominal pain Qualifiers: Abdominal location: right lower quadrant Qualified Code(s): R10.31 - Right lower quadrant pain Instructions: Nausea and Vomiting, Adult, [id number], Abdominal Pain, Adult, [id number], Hernia, Adult, [id number], Nausea, Adult - Problem List Review Problem List Initiated/Reviewed/Updated: Yes - Assessment/Plan Assessment:: Nausea Vomiting Hernia Plan: Zofran 4 mg ODT SL every 4 hours as needed for nausea and vomiting. Follow up with your primary care provider if no better in 3 days.
[2016-12-13 20:21] VITALS: BP 129/75
[2016-12-13] MEDS ORDERED: Sodium Chloride 0.9% 1,000 ML IV ONE (20:22)
[2016-12-13] MEDS ORDERED: Ondansetron 4 MG/2 ML SDV IVPUSH ONE (20:24)
[2016-12-13] MEDS ORDERED: Take Home: Ondansetron 4 MG Tab.DIS, 2 Tab Pack PO ONE (20:28)
== END 2016-12-13 21:20 | disposition home or self-care (01) ==
LOC: VM.ED 19:38
DX: K43.9 Ventral hernia without obstruction or gangrene (principal); E78.00 Pure hypercholesterolemia, unspecified; I10 Essential (primary) hypertension; K21.9 Gastro-esophageal reflux disease without esophagitis; F32.9 Major depressive disorder, single episode, unspecified; Z79.899 Other long term (current) drug therapy
CPT/HCPCS: 96361; 96374; 99284; A9270; J2405; J7030; 99283-GF